=== PATIENT | male | born 1960 ===

== ENCOUNTER 2018-11-10 09:27 | Outpatient (CLI) | payer OTHER ==
--- NOTE | 2018-11-10 10:07 | RAD ---
CHEST TWO VIEWS: History: Cough and congestion. FINDINGS: No comparison. Cardiac silhouette and pulmonary vasculature are unremarkable. Lungs are hyperinflated . Mediastinum is midline. Calcified granulomata are consistent with healed granulomatous disease. Mil d scarring at the lateral aspect of the right apex. No confluent airspace consolidation, pneumothorax or pleural fluid. IMPRESSION: 1. Pulmonary hyperinflation. 2. No active cardiopulmonary abnormalities are otherwise demonstrated. POS: [facility]
--- NOTE | 2018-11-10 10:39 | ULT ---
ABDOMINAL ULTRASOUND: HISTORY: Abdominal pain. FINDINGS: Real-time imaging of the upper abdomen was performed. This shows a normal-appearing gallbladder. Th e common duct is 4 mm. The technologist reports a negative ultrasound Frias's sign. The liver show s normal echogenicity at 16 cm in length. The spleen measures 9.8 cm. Right and left kidneys are normal in size and not obstructed. The pancreas, abdominal aorta, and IVC regions all appear unremarkable. IMPRESSION: Unremarkable abdomen ultrasound. POS: [facility]
== END 2018-11-10 09:28 | disposition home or self-care (01) ==
LOC: SCSULT 09:27
PROVIDERS: ATTEND Nurse Practitioner Family
DX: R05 Cough (principal); R10.9 Unspecified abdominal pain; J98.11 Atelectasis
CPT/HCPCS: 71046; 76700